=== PATIENT | female | born 2000 | race Two or more races ===

== ENCOUNTER 2025-02-05 18:03 | Inpatient (IN) | payer BC, OTHER ==
[~2025-02-05] VITALS: Ht 157.5 cm; Wt 65.1 kg
[2025-02-05] MEDS: ALBUTEROL FS 2.5 MG/3 ML VIAL.NEB NEB ONE ×2 (18:50→21:42)
[2025-02-05] MEDS: IPRATROPIUM NEB FS 0.5 MG/2.5 ML AMPUL.NEB NEB ONE ×2 (18:50→21:41)
[2025-02-05] MEDS ORDERED: ALBUTEROL FS 2.5 MG/3 ML VIAL.NEB ONE ×2 (19:01→21:48)
[2025-02-05] MEDS ORDERED: IPRATROPIUM NEB FS 0.5 MG/2.5 ML AMPUL.NEB ONE ×2 (19:01→21:48)
[2025-02-05 19:04] LABS: PLATELET COUNT (AUTO) 406 K/uL (150-450); RED BLOOD CELL COUNT(AUTO) 4.78 MIL/uL (4.0-5.2); RED CELL DISTRIBUTION WIDTH 13.0 % (11.5-15.0); WHITE BLOOD COUNT (AUTO) 17.5 K/uL (4.3-11.0)
[2025-02-05 19:08] VITALS: O2SAT 96
[2025-02-05 19:12] LABS: CALCIUM, SERUM 8.8 mg/dL (8.5-10.1); CREATININE 0.5 mg/dL (0.6-1.3); SODIUM SERUM 138.0 mmol/L (136-145); UREA NITROGEN, BLOOD 7.0 mg/dL (7-18)
[2025-02-05 19:19] VITALS: O2SAT 100
[2025-02-05 21:45] VITALS: O2SAT 92
[2025-02-05 21:55] VITALS: O2SAT 100
[2025-02-06] VITALS (15 sets, daily range): BP systolic 121–133; BP diastolic 63–78; TEMP 97.7–98.4; O2SAT 94–100
[2025-02-06] MEDS ORDERED: ONDANSETRON HCL/PF 4 MG/2 ML VIAL IVP PRN (01:00)
[2025-02-06] MEDS ORDERED: MAGNESIUM HYDROXIDE 30 ML UDC PO PRN (01:00)
[2025-02-06] MEDS ORDERED: ACETAMINOPHEN 325 MG TABLET PO PRN (01:00)
[2025-02-06] MEDS ORDERED: VENL75TA4 PO ×2 (01:42)
[2025-02-06] MEDS ORDERED: BECL10.62 INH (01:48)
[2025-02-06] MEDS ORDERED: PRED50TA PO (01:48)
[2025-02-06] MEDS: IV NS 0.9% 1,000 ML IV PRN (01:56)
[2025-02-06] MEDS: Magnesium 1GM/D5W 100ML PREMIX 100 ML IV SCH (01:56)
[2025-02-06] MEDS: IPRATROPIUM NEB FS 0.5 MG/2.5 ML AMPUL.NEB NEB SCH (03:08)
[2025-02-06] MEDS: LEVALBUTEROL HCL NEB 1.25 MG/0.5 ML VIAL.NEB NEB SCH (03:08)
[2025-02-06 07:38] LABS: PLATELET COUNT (AUTO) 368 K/uL (150-450); RED BLOOD CELL COUNT(AUTO) 4.22 MIL/uL (4.0-5.2); RED CELL DISTRIBUTION WIDTH 13.4 % (11.5-15.0); WHITE BLOOD COUNT (AUTO) 18.7 K/uL (4.3-11.0)
[2025-02-06] MEDS: PANTOPRAZOLE 40 MG TABLET.DR PO SCH (07:41)
[2025-02-06 08:06] LABS: CALCIUM, SERUM 8.9 mg/dL (8.5-10.1); CREATININE 0.8 mg/dL (0.6-1.3); PHOSPHORUS 2.1 mg/dL (2.5-4.9); SODIUM SERUM 140.0 mmol/L (136-145); UREA NITROGEN, BLOOD 9.0 mg/dL (7-18)
[2025-02-06] MEDS ORDERED: VENLAFAXINE XR 75 MG CAP.SR.24H PO SCH (09:00)
[2025-02-06] MEDS: VENLAFAXINE XR 75 MG CAP.SR.24H PO SCH (09:09)
[2025-02-06] MEDS ORDERED: BUDESONIDE RESPULE INH 0.5 MG/2 ML AMPUL.NEB HHN SCH (15:00)
[2025-02-06] MEDS: K PHOS NEUTRAL 250 MG TABLET PO ONE (16:27)
[2025-02-06] MEDS: DOXYCYCLINE 100 MG in IV D5W 100 ML IV SCH (17:47)
[2025-02-06] MEDS: BUDESONIDE RESPULE INH 0.5 MG/2 ML AMPUL.NEB HHN SCH (20:29)
[2025-02-07] VITALS (9 sets, daily range): BP systolic 106–123; BP diastolic 67–74; TEMP 97.3–98.1; O2SAT 95–100
[2025-02-07 08:08] LABS: PLATELET COUNT (AUTO) 364 K/uL (150-450); RED BLOOD CELL COUNT(AUTO) 4.33 MIL/uL (4.0-5.2); RED CELL DISTRIBUTION WIDTH 13.7 % (11.5-15.0); WHITE BLOOD COUNT (AUTO) 25.6 K/uL (4.3-11.0)
[2025-02-07 08:12] LABS: CALCIUM, SERUM 9.0 mg/dL (8.5-10.1); CREATININE 0.7 mg/dL (0.6-1.3); SODIUM SERUM 141.0 mmol/L (136-145); UREA NITROGEN, BLOOD 11.0 mg/dL (7-18)
[2025-02-07] MEDS ORDERED: DOXY100T2 PO ×2 (12:40→16:25)
[2025-02-07] MEDS ORDERED: BUDE0.5A IH (12:40)
[2025-02-07] MEDS ORDERED: LEVA1.257 IH (12:40)
[2025-02-07] MEDS ORDERED: BUDE0.5A4 IH (16:25)
[2025-02-07] MEDS ORDERED: LEVA0.6320 NEB (16:25)
[2025-02-07] MEDS ORDERED: BUDE10.22 INH (16:50)
== END 2025-02-07 15:00 | disposition home or self-care (01) | DRG 202 ==
LOC: ER 18:08 → TELE 23:01
PROVIDERS: ADMIT Nurse Practitioner Family; ATTEND Nurse Practitioner Family
DX: J45.901 Unspecified asthma with (acute) exacerbation (principal); J96.00 Acute respiratory failure, unspecified whether with hypoxia or hypercapnia; Z79.51 Long term (current) use of inhaled steroids; F41.9 Anxiety disorder, unspecified; F17.200 Nicotine dependence, unspecified, uncomplicated; Z71.6 Tobacco abuse counseling; Z79.899 Other long term (current) drug therapy; F12.90 Cannabis use, unspecified, uncomplicated
CPT/HCPCS: 36415; 70220-TC; 71045-TC; 80048-TC; 83735-TC; 84100-TC; 84702-TC; 85025-TC; 85378-TC; 94760-TC; 94762-TC; 94799-TC; A4223; G0378; J2919; J3475; J3490; J7030; J7050; J7060